=== PATIENT | female | born 1975 | race Caucasian/White ===

== ENCOUNTER 2016-12-11 18:58 | Emergency (ER) | payer OTHER | END 2016-12-11 20:43 | disposition home or self-care (01) | LOC: ER 18:58 | DX: J11.1 Influenza due to unidentified influenza virus with other respiratory manifestations (principal); Z79.899 Other long term (current) drug therapy; Z88.2 Allergy status to sulfonamides | CPT/HCPCS: 87400; 99283 ==

== ENCOUNTER 2017-02-27 22:03 | Emergency (ER) | payer OTHER | END 2017-02-27 22:45 | disposition short-term general hospital (02) | LOC: ER 22:03 | DX: R51 Headache (principal); E66.01 Morbid (severe) obesity due to excess calories; Z79.899 Other long term (current) drug therapy; Z88.2 Allergy status to sulfonamides | CPT/HCPCS: 99283 ==